=== PATIENT | female | born 1955 | race Caucasian/White ===

== ENCOUNTER → 2017-01-11 | Outpatient (CLI) | payer BC, OTHER ==
[~2017-01-11] MED LIST: ANTIVERT-DPS25 MG PO; BIOTIN2500 MCG PO; IRON325 M1 PO; MOBIC15 MG PO; NORCO 5-325 TA1 EACH PO; POTASSIUM99 M1 PO; PROAIR HFA8.5 GM IH; SINGULAIR10 MG PO; SYMBICORT160 MCG/6 IH; VIBRAMYCIN-DPS100 M1 PO; VITAMIN D1000 UNI1 PO; ZESTRIL DPS5 MG PO; ZOFRAN4 MG PO; ZYRTEC DPS10 MG PO
== END | disposition home or self-care (01) ==
LOC: RAD.S 12:40
DX: K43.9 Ventral hernia without obstruction or gangrene (principal)

== ENCOUNTER → 2017-01-19 | Outpatient (CLI) | payer BC | END | disposition home or self-care (01) | LOC: RAD.S 07:43 | PROC: 0W9G3ZZ Drainage of Peritoneal Cavity, Percutaneous Approach (ICD-10-PCS; principal; 2017-01-19) | DX: R18.8 Other ascites (principal) ==

== ENCOUNTER → 2017-01-28 | Outpatient (CLI) | payer BC | END | disposition home or self-care (01) | LOC: RAD.S 15:30 | PROC: BW11YZZ Fluoroscopy of Abdomen and Pelvis using Other Contrast (ICD-10-PCS; principal; 2017-01-28) | DX: L02.211 Cutaneous abscess of abdominal wall (principal) ==

== ENCOUNTER → 2017-02-04 | Outpatient (CLI) | payer BC, SELFPAY | END | disposition home or self-care (01) | LOC: RAD.S 14:14 | PROC: 3E0M3KZ Introduction of Other Diagnostic Substance into Peritoneal Cavity, Percutaneous Approach (ICD-10-PCS; principal; 2017-02-04) | DX: R18.8 Other ascites (principal) ==

== ENCOUNTER → 2017-02-15 | Outpatient (CLI) | payer BC, SELFPAY | END | disposition home or self-care (01) | LOC: PTH.S 10:15 → RAD.S 11:00 | DX: R50.9 Fever, unspecified (principal); R61 Generalized hyperhidrosis; L76.32 Postprocedural hematoma of skin and subcutaneous tissue following other procedure ==

== ENCOUNTER 2017-02-23 07:05 | Inpatient (IN) | payer BC ==
[~2017-02-23] VITALS: Ht 158.8 cm; Wt 93.6 kg
--- NOTE | ~2017-02-23 | FD ---
ADMIT: 02/23/2017 RM/LOC: [facility] MR#: [id number] [address] [address] [place] MAN Brit [address] [place] [address] Final Diagnosis SEX: F AGE: 61 : 1955 ADMISSION DATE: 02/23/2017 DISCHARGE DATE: 02/24/2017 PROCEDURE: Incision and drainage of large subcutaneous abdominal wall abscess. FINAL DIAGNOSIS: Abdominal wall abscess. GIULIANO Gu / Abel Canela MD / modl JOB #: [id number] CC: Abel Canela MD, Attending Physician Saba Bailey MD, Family Physician
--- NOTE | ~2017-02-23 | WND ---
ADMIT: 02/23/2017 RM/LOC: [address] [facility] MR#: [id number] [facility]#: [id number] [address] [address] KEKE JENKINS [address] [place] [address] Wound Care Clinic SEX: F AGE: 61 : 1955 DATE OF VISIT: 02/23/2017 TIME OF VISIT: 45 minutes. REASON FOR VISIT: Diagnosis of status post surgical incision and drainage of a large subcutaneous abdominal wall abscess. HISTORY OF PRESENT ILLNESS: Keke is a 61-year-old female, who was seen by Dr. Canela for subcutaneous fluid collections underneath her abdomen that was causing significant discomfort. Her past medical history includes a lap band for which she had to have removal of secondary to infection and erosion. This surgery was done on October 06, [address] Canela. PAST MEDICAL HISTORY: Bariatric surgery, essential hypertension, asthma, colon polyps, hypokalemia, vitamin D deficiency, gastric reflux, cervical spine stenosis, hemopneumothorax, closed fracture of the left humerus, methicillin Staphylococcus aureus infection chest tube site, breast reduction, abdominoplasty, sleep apnea, AZAEL with BSO in 05/2001 for DUB and benign pelvic mass, tubal ligation. Her lap band surgery was is in [place] in 02/14. MEDICATIONS: 1. Meloxicam. 2. Montelukast. 3. ProAir. 4. Symbicort. ALLERGIES: Augmentin causes nausea and vomiting. FAMILY HISTORY: Maternal aunt with CVA at 65 years old. Female tumor, maternal aunt. Congestive heart failure in her maternal grandfather. Coronary artery disease in most of her family. Breast cancer in her biological mother, who at age 52. Biologic maternal grandmother at 70 or so. Osteoporosis in maternal aunt. She is adopted. Macular degeneration in maternal aunt. SOCIAL HISTORY: She is , with 3 children. She denies drinking or smoking or illicit drug use. REVIEW OF SYSTEMS: She does report just feeling "rodriguez" since September. She enjoys riding horses and has not been able to because she does not feel well. She denies any chest pain, shortness of breath, or cough. She denies nausea, vomiting, or diarrhea. OBJECTIVE: Assessment of her abdomen reveals 2 full-thickness wounds to her lower abdomen, the first one measures 1.5 cm in length with 5 cm in width and 3.7 cm in depth. Wound bed is 100% red tissue. There is undermining of 4 cm at 3 o'clock and 6 cm at 6 o'clock. The 2nd wound to the distal abdomen measures . ADMIT: 02/23/2017 RM/LOC: [address] [facility] MR#: [id number] [address] [place], [place] [id number] KEKE JENKINS [address] [place] [address] Wound Care Clinic SEX: F AGE: 61 : 1955 ASSESSMENT: Status post incision and drainage of an abdominal abscess on February 23, 2017 with 2 large open abdominal wounds to her lower abdomen. PLAN: The wound packing was removed that was placed in surgery today. Wound cavities were irrigated with saline. I applied the VAC GranuFoam into the wound beds and the VAC was draped and turned on at 125 mmHg continuous. Good seal was noted. The patient tolerated the procedure well. Therefore, pieces of foam in the 2 abdominal wounds. The patient will follow up with us in [facility]patient [facility] on February 25, 2017 and then on Tuesday, Tuesday, and Tuesday. She is amenable to plan of care. I would like to thank Dr. Canela for allowing us to participate in Keke's care. Marimar Jung APRN/ jorge alberto JOB #: [id number] CC: Abel Canela MD, Attending Physician Saba Bailey MD, Family Physician
[~2017-02-23 07:05] MED LIST changes: -ANTIVERT-DPS25 MG PO; -BIOTIN2500 MCG PO; -IRON325 M1 PO; -MOBIC15 MG PO; -POTASSIUM99 M1 PO; -ZESTRIL DPS5 MG PO
[2017-02-25] MEDS ORDERED: ZESTRIL DPS5 MG PO (20:10)
[2017-02-25] MEDS ORDERED: BIOTIN2500 MCG PO (20:10)
[2017-02-25] MEDS ORDERED: POTASSIUM99 M1 PO (20:10)
[2017-02-25] MEDS ORDERED: ANTIVERT-DPS25 MG PO (20:10)
[2017-02-25] MEDS ORDERED: IRON325 M1 PO (20:11)
[2017-02-25] MEDS ORDERED: MOBIC15 MG PO (20:11)
--- NOTE | 2017-02-28 07:24 | OR ---
ADMIT: 02/23/2017 RM/LOC: 620 [facility] MR#: [id number] [address] [address] KEKE JENKINS [address] [place] [address] Operative/Delivery Room Report SEX: F AGE: 61 : 1955 SURGERY DATE: 02/23/2017 SURGEON: Abel Canela MD PREOPERATIVE DIAGNOSIS: Abdominal wall fluid collection. POSTOPERATIVE DIAGNOSIS: Large abdominal wall abscess. PROCEDURE: Incision and drainage of large subcutaneous abdominal wall abscess. ANESTHESIA: General. ESTIMATED BLOOD LOSS: 10 mL. DESCRIPTION OF PROCEDURE: The patient was taken to the operating room and placed supine on the operating room table. General anesthesia was established. The abdomen was prepped and draped in the standard surgical fashion. The transverse lower abdominal incision was incised and dissection proceeded down to the capsule of the fluid collection. This was sharply entered with a large quantity of purulence expressed through this. This abscess cavity was then explored. It did extend to the left upper quadrant at her original port site from years ago. A counter incision was made through her prior scar at this site and carried down to the abscess cavity. Debridement of the extremely thick capsule was performed. There were also two clips from her abdominoplasty surgery at this site which were localized with fluoroscopy and excised. The wound was then irrigated with saline until there was no sign of residual purulence. This was packed with 4 inch Kerlix soaked in Betadine. Local anesthetic was injected and dressing was applied. Sponge, needle, and instrument counts were correct at the end of the case. The patient tolerated the procedure well and transferred to the recovery area in stable condition. Abel Canela MD/ jorge alberto JOB #: [id number] CC: Abel Canela, Attending Physician Saba Bailey, Family Physician
== END 2017-02-24 14:17 | disposition home or self-care (01) | DRG 857 ==
LOC: SSS 07:05 → 6PED 10:37 → SSS 15:01 → 6PED 02-24 14:17
PROVIDERS: ADMIT Surgery
PROC: 0W9F0ZZ Drainage of Abdominal Wall, Open Approach (ICD-10-PCS; principal; 2017-02-23)
DX: T81.4XXA Infection following a procedure, initial encounter (principal); L02.211 Cutaneous abscess of abdominal wall; I10 Essential (primary) hypertension; G47.30 Sleep apnea, unspecified; J45.909 Unspecified asthma, uncomplicated; E55.9 Vitamin D deficiency, unspecified; K21.9 Gastro-esophageal reflux disease without esophagitis; E66.9 Obesity, unspecified; Z98.84 Bariatric surgery status; Z86.010 Personal history of colon polyps; Z68.38 Body mass index [BMI] 38.0-38.9, adult